=== PATIENT | male | born 1985 | race Caucasian/White ===

== ENCOUNTER → 2020-11-28 | Outpatient (CLI) | payer OTHER ==
--- NOTE | 2020-11-29 16:07 | SLEEPCENT ---
DATE: 11/28/2020 ORDERED BY: Eleazar Shi Nocturnal polysomnography was performed for evaluation of sleep physiology in this patient with a history of excessive somnolence and nonrestorative sleep. There was 7 hours and 55 minutes of data reviewed. There was 368 minutes of sleep identified. Sleep latency was quite prolonged at 79.5 minutes. REM latency was also somewhat prolonged at 107 minutes. Sleep architecture once established was fair. There were two REM cycles. Progression was fairly well preserved. Overall sleep efficiency was 78.2%. The electrocardiogram showed a sinus rhythm with an average heart rate of 54 beats per minute. Rate ranged 40-80. EEG showed reasonably normal waveforms for wake and sleep. There were only two respiratory events identified of 10 seconds in duration or greater for an apnea-hypopnea index within normal limits at 0.3. Snoring was noted. Arousals from respiratory events occurred once per hour. There was also some limb activity. Two trains of 30 events, but the limb movement arousal index was normal at 3.3. Oxygen saturations remained 90% plus. IMPRESSION: Normal nocturnal polysomnography with snoring.
== END ==
LOC: M SLEEP 20:00
PROVIDERS: ATTEND Physician Assistant
DX: R40.0 Somnolence (principal)